=== PATIENT | male | born 1995 | race African-American/Black ===

== ENCOUNTER 2019-03-09 23:56 | Emergency (ER) | payer SELFPAY ==
[~2019-03-09] VITALS: Ht 188 cm; Wt 83.9 kg
--- NOTE | 2019-03-10 04:47 | PHYS DOC ---
Past Medical History Past Medical History: No Pertinent History Past Medical History Limited due to ETOH intoxication Past Surgical History: No Surgical History Past Surgical History Limited due to ETOH intoxication Smoking: Cigarettes Alcohol Use: Occasionally Drug Use: Marijuana Social History Limited due to ETOH intoxication Adult General Chief Complaint Chief Complaint: ALCOHOL INTOXICATION HPI HPI 23-year-old male presents via EMS with report of altered mental status at bus stop presumed to be alcohol intoxication. Patient does report he has been drinking. Patient is uncooperative with questioning and reports "I just want to sleep ". History of present illness limited due to alcohol intoxication. Review of Systems Review of Systems Neurologic: Altered mental status Review of systems limited due to alcohol intoxication Allergies Allergies Allergies Coded Allergies Type Severity Reaction Last Updated Verified No Known Drug Allergies 03/12/14 No Physical Exam Physical Exam Constitutional: Well developed, well nourished, agitated and uncooperative, non- toxic appearance HENT: Normocephalic, atraumatic, oropharynx moist Eyes: PERRL, conjunctiva injected, no discharge Neck: Normal range of motion, no tenderness, supple Cardiovascular: Heart rate normal, regular rhythm Lungs & Thorax: Bilateral breath sounds clear to auscultation, no wheezing Abdomen: Soft, no tenderness Skin: Warm, dry, no erythema, no rash Extremities: No tenderness, ROM intact, no edema Neurologic: Alert but obtunded, moving all extremities Psychologic: Affect agitated, judgement abnormal Current Patient Data Vital Signs Vital Signs Date Time Temp Pulse Resp B/P (MAP) Pulse Ox O2 Delivery O2 Flow Rate FiO2 03/09/19 23:57 98.0 92 18 110/68 (82) 98 Room Air 98.0 Lab Values Laboratory Tests Test 03/10/19 04:55 Glucose (Fingerstick) 120 mg/dL (70-99) H EKG EKG [] Radiology/Procedures Radiology/Procedures [] Course & Med Decision Making Course & Med Decision Making Pertinent Lab studies reviewed. (See chart for details) Patient presents with history of present illness and physical exam consistent for alcohol intoxication. Patient refusing IV draw. Patient wanting to "sleep". Patient allowed to sober up in department. Vital signs stable. Patient now arouses to voice. Accu-Chek obtained and stable. Patient appears clinically sober. Patient with steady gait. Patient stable for discharge with outpatient follow-up with PCP. Discussed findings and plan with patient, who acknowledges understanding and agreement. Gal Disclaimer Dragon Disclaimer This electronic medical record was generated, in whole or in part, using a voice recognition dictation system. Departure Departure Impression: Primary Impression: Alcohol intoxication Disposition: 01 HOME, SELF-CARE Condition: STABLE Referrals: NO PCP (PCP) Patient Instructions: Alcohol Intoxication, [id number], Alcohol and Drug Addiction, Finding Treatment, How Much is Too Much Alcohol, [id number] Problem Qualifiers Primary Impression: Alcohol intoxication Complication of substance-induced condition: with unspecified complication Qualified Codes: F10.929 - Alcohol use, unspecified with intoxication, unspecified LETA CONNER DO Mar 10, 2019 04:47
[2019-03-10 06:00] VITALS: BP 121/58
== END 2019-03-10 06:24 | disposition home or self-care (01) ==
LOC: ER 23:56
DX: F10.129 Alcohol abuse with intoxication, unspecified (principal); R41.82 Altered mental status, unspecified; R45.1 Restlessness and agitation; F17.210 Nicotine dependence, cigarettes, uncomplicated; Y90.9 Presence of alcohol in blood, level not specified
CPT/HCPCS: 82962; 99283

== ENCOUNTER 2019-05-07 11:30 | Emergency (ER) | payer SELFPAY ==
[~2019-05-07] VITALS: Ht 188 cm; Wt 81.6 kg
[2019-05-07 12:43] VITALS: BP 134/71
[2019-05-07] MEDS ORDERED: cefTRIAXone IM 250 MG VIAL IM ONE (13:00)
[2019-05-07] MEDS ORDERED: AZITHROMYCIN 250 MG TABLET. PO ONE (13:00)
[2019-05-07] MEDS ORDERED: ONDANSETRON ODT 4 MG TAB.RAPDIS. PO ONE (13:00)
[2019-05-07 13:19] LABS: BILIRUBIN,URINE NEGATIVE (NEG); CLARITY,URINE CLEAR; COLOR,URINE YELLOW; NITRITE,URINE NEGATIVE (NEG); PH,URINE 5.5; PROTEIN,URINE NEGATIVE (NEG-TRACE); UROBILINOGEN,URINE 0.2 mg/dL (0.2 mg/dL)
--- NOTE | 2019-05-07 13:24 | PHYS DOC ---
Past Medical History Past Medical History: No Pertinent History Past Surgical History: No Surgical History Alcohol Use: Occasionally Drug Use: Marijuana Adult General Chief Complaint Chief Complaint: SEXUALLY TRANSMITTED DISEASE HPI HPI Patient is a 23 year old male who presents with burning of urination and states he's had a sexual transmitted disease in the past and he thinks he was exposed to a one but does not know which one. Review of Systems Review of Systems : dysuria or denies hematuria [] All other systems were reviewed and found to be within normal limits, except as documented in this note. Current Medications Current Medications Current Medications Medications (Trade) Dose Ordered Sig/Kris Start Time Stop Time Status Last Admin Dose Admin Azithromycin (Zithromax) 1,000 mg 1X ONCE 05/07/19 13:00 05/07/19 13:05 DC 05/07/19 13:21 1,000 MG Ceftriaxone Sodium (Rocephin Im) 250 mg 1X ONCE 05/07/19 13:00 05/07/19 13:05 DC 05/07/19 13:21 250 MG Ondansetron HCl (Zofran Odt) 4 mg 1X ONCE 05/07/19 13:00 05/07/19 13:05 DC 05/07/19 13:21 4 MG Allergies Allergies Allergies Coded Allergies Type Severity Reaction Last Updated Verified No Known Drug Allergies 03/12/14 No Physical Exam Physical Exam Constitutional: Well developed, well nourished, no acute distress, non-toxic appearance. [] Abdomen: Bowel sounds normal, soft, no tenderness, no masses, no pulsatile masses. [] Skin: Warm, dry, no erythema, no rash. [] Back: No tenderness, no CVA tenderness. [] Neurologic: Alert and oriented X 3, normal motor function, normal sensory function, no focal deficits noted. [] Psychologic: Affect normal, judgement normal, mood normal. Normal Physical Exam[] Current Patient Data Vital Signs Vital Signs Date Time Temp Pulse Resp B/P (MAP) Pulse Ox O2 Delivery O2 Flow Rate FiO2 05/07/19 12:43 97.9 63 16 134/71 (92) 98 Room Air 97.9 Lab Values Laboratory Tests Test 05/07/19 12:31 Urine Collection Type Unknown Urine Color Yellow Urine Clarity Clear Urine pH 5.5 Urine Specific [place] 1.020 Urine Protein Negative mg/dL (NEG-TRACE) Urine Glucose (UA) Negative mg/dL (NEG) Urine Ketones (Stick) Negative mg/dL (NEG) Urine Blood Negative (NEG) Urine Nitrite Negative (NEG) Urine Bilirubin Negative (NEG) Urine Urobilinogen Dipstick 0.2 mg/dL (0.2 mg/dL) Urine Leukocyte Esterase Large (NEG) Urine RBC 0 /HPF (0-2) Urine WBC >40 /HPF (0-4) Urine Squamous Epithelial Cells Few /LPF Urine Bacteria Moderate /HPF (0-FEW) Urine Mucus Slight /LPF EKG EKG [] Radiology/Procedures Radiology/Procedures [] Course & Med Decision Making Course & Med Decision Making Patient states he's had burning with urination 4 days. Patient denies penile discharge or sores. Upon examination patient does not have penile discharge or sores seen. Patient does have a urinary tract infection per urinalysis. Vital signs within normal limits. Abdomen is soft and nontender. Patient denies abdo dunia pain, nausea, vomiting, fever, back pain. Patient is treated for sexually transmitted diseases in the emergency room. Patient is told that he will be called in 48 hours only if his cultures come back positive. Dragon Disclaimer Dragon Disclaimer This electronic medical record was generated, in whole or in part, using a voice recognition dictation system. Departure Departure Impression: Primary Impression: Sexually transmissible disease Additional Impression: UTI (urinary tract infection) Disposition: 01 HOME, SELF-CARE Condition: STABLE Referrals: NO PCP (PCP) Patient Instructions: Sexually Transmitted Disease, Urinary Tract Infection Additional Instructions: You will be called in 48 hours if you're cultures come back positive only. Have all sexual partners treated. Scripts Cephalexin (KEFLEX) 500 Mg Capsule 1 CAP PO BID for 7 Days, #14 CAP 0 Refills Prov: YONATAN FREEDMAN [employer]INUOUS [employer] OPERATOR HELPER 05/07/19 Problem Qualifiers Additional Impression: UTI (urinary tract infection) Urinary tract infection type: site unspecified Hematuria presence: without hematuria Qualified Codes: N39.0 - Urinary tract infection, site not specified YONATAN FREEDMAN CONTINUOUS [employer]YOUT OPERATOR HELPER May 07, 2019 13:24
[2019-05-07 13:27] LABS: SQUAMOUS EPITHELIAL CELL,UR FEW /LPF
[2019-05-07 13:28] LABS: BACTERIA,URINE MODERATE /HPF (0-FEW); RBC,URINE 0 /HPF (0-2); WBC,URINE >40 /HPF (0-4)
[2019-05-07] MEDS ORDERED: CEPH-264 PO (13:43)
== END 2019-05-07 14:03 | disposition home or self-care (01) ==
LOC: ER 11:30
DX: N39.0 Urinary tract infection, site not specified (principal); A64 Unspecified sexually transmitted disease
CPT/HCPCS: 81001; 87086; 87491; 87591; 96372; 99284; J0696; Q0144; Q0162